=== PATIENT | female | born 1995 | race American Indian/Alaskan Native ===

== ENCOUNTER 2022-04-08 22:44 | Emergency (ER) | payer SELFPAY ==
[2022-04-08] MEDS ORDERED: Sodium Chloride 0.9% 10 ML Syringe FLUSH PRN (23:10)
[2022-04-09 01:06] LABS: ESTIMATED GFR 78 mL/min (>60)
[2022-04-09] MEDS ORDERED: Sodium Chloride 0.9% 1,000 ML IV ONE (01:45)
[2022-04-12 09:10] LABS: HBSAG SCREEN Negative (Negative); HCV AB 0.4 s/co ratio (0.0-0.9); HEP A AB, IGM Negative (Negative); HEP B CORE AB, IGM Negative (Negative)
== END 2022-04-09 09:49 | disposition home or self-care (01) ==
LOC: JP.ED 22:44
DX: R40.0 Somnolence (principal); R94.31 Abnormal electrocardiogram [ECG] [EKG]
CPT/HCPCS: 36415; 80053; 80074; 80143; 80307; 82803; 83735; 85025; 87449; 93005; 96360; 99285; J3490; J7030